=== PATIENT | female | born 1950 | race Caucasian/White ===

== ENCOUNTER → 2017-09-16 | Outpatient (CLI) | payer BC, MEDICARE ==
[~2017-09-16] MED LIST: COUMADIN5 MG PO; DIOVAN/HCTZ; DIOVAN160 MG PO; ESCITALOPRAM OX10 MG PO; LEXAPRO; MYRBETRIQ25 MG PO; PEPCID20 MG PO; PREVACID; TRAMADOL; ULTRAM50 MG PO; VITAMIN D; WARFARIN; WARFARIN SODIUM5 MG PO
--- NOTE | 2017-09-16 14:01 | Diagnostic Imaging Report ---
PROCEDURE:US RETROPERITONEAL ( KIDNEY ). COMPARISON:Abdominal ultrasound 06/23/2017. INDICATIONS:Elevated Creatinine TECHNIQUE: Roman-scale and color sonographic images of the bilateral kidneys and bladder where obtained in transverse and longitudinal planes. FINDINGS: RIGHT KIDNEY: 9.9 cm, cortex 1.9 cm Cysts: 1.3 x 1.0 x 1.2 cm simple cyst in the interpolar region. Solid masses: None. Stones: None. Hydronephrosis: None. Echogenicity: Normal. LEFT KIDNEY: 10.4 cm, cortex 1.4 cm Cysts: 1.8 x 1.0 x 2.0 cm simple cyst in the interpolar region. Solid masses: None. Stones: None. Hydronephrosis: None. Echogenicity: Normal. Bladder: Normal contour. Partially filled. Bilateral ureteral jets are visualized. Incidental note is made of increased echogenicity of the liver. CONCLUSION: No acute sonographic abnormality. Bilateral renal simple cysts. Hepatic steatosis. Dictated by: Masoud Youngblood M.D. on 09/16/2017 at 14:02 Electronically approved by: Masoud Youngblood M.D. on 09/16/2017 at 14:02
== END ==
LOC: US 12:12
PROVIDERS: ATTEND Internal Medicine
DX: R79.89 Other specified abnormal findings of blood chemistry (principal)
CPT/HCPCS: 76770

== ENCOUNTER → 2019-03-22 | Outpatient (CLI) | payer MEDICARE, BC ==
--- NOTE | 2019-03-22 11:27 | Diagnostic Imaging Report ---
Exam: Bone mineral density study. History: 68-year-old female. Comparison: 02/28/2014. Discussion: Evaluation of the hips and lumbar spine was performed utilizing DEXA Hologic bone densitometer. The study is technically adequate. The patient's fracture risk is compared to an age-matched control. Right femoral neck bone mineral density: 0.878 g/cm2, T-score is -0.5, Z-score is 0.8. Decreased 0.2% compared to prior exam. Lumbar spine total bone mineral density: 1.374 gm/cm2, T-score is 3, Z-score is 4.8. Increased 0.9% compared to prior exam Impression: 1. Bone mineralization by WHO Classification of the hips is normal, the fracture risk is not increased. 2. Bone mineralization by WHO Classification of the lumbar spine is normal, the fracture risk is not increased. <T score: NL = -1 or higher Osteopenia = -1 to -2.5 Osteoporosis = -2.5 or lower Z score: < - 1.5 concerning for path> Recommendations: Medical evaluation for secondary causes of low bone mineral density may be appropriate. Correlate clinically for the necessity and timing of the next bone mineral density study. National Osteoporosis Foundation recommendations: Initiate therapy to reduce fracture risk in postmenopausal women with -BMD t-scores below -2 by central DXA with no risk factors -BMD t-scores below -1.5 by central DXA with one or more risk factors (first deg relative with hip fracture, prior personal fracture, low body weight, smoking) -A prior vertebral or hip fracture AACE (Clinical Endocrinology) recommends treating the following: Postmenopausal women who have osteoporosis as diagnosed by fragility fractures or t scores -2.5 or below Postmenopausal women who have risk factors (including fh of hip fracture, low body weight, smoking, risk of falling, high bone turnover, advancing age) and borderline low BMD T scores of -1.5 or below Adequate intake of calcium (at least 1200mg/day) and vitamin D (400-800 IU/day). Regular weight bearing and muscle - strengthening exercises Avoid smoking and excessive alcohol Signed by: Trevon Ortiz on 03/22/2019 11:24 AM
--- NOTE | 2019-03-30 08:45 | Diagnostic Imaging Report ---
#[id number] - MGSCRBIL #BILATERAL DIGITAL SCREENING MAMMOGRAM WITH CAD: 03/22/2019 CLINICAL: Routine screening. Comparison is made to exams dated: 02/28/2014 mammogram and 12/02/2011 mammogram - [facility]. The tissue of both breasts is predominantly fatty. Current study was also evaluated with a Computer Aided Detection (CAD) system. There are benign calcifications in both breasts. No significant masses, calcifications, or other findings are seen in either breast. There has been no significant interval change. IMPRESSION: BENIGN There is no mammographic evidence of malignancy. A 1 year screening mammogram is recommended. The patient will be notified by letter of the results. ANDRE woods/renzo:03/28/2019 10:38:51 [employer] Clerk: Kia BLANDON)([place]), [facility] letter sent: Normal Exam Mammogram BI-RADS: 2 Benign
== END ==
LOC: MAMMO 09:52
PROVIDERS: ATTEND Internal Medicine Hematology & Oncology
DX: Z12.31 Encounter for screening mammogram for malignant neoplasm of breast (principal); N95.8 Other specified menopausal and perimenopausal disorders
CPT/HCPCS: 77067; 77080

== ENCOUNTER → 2021-08-06 | Outpatient (CLI) | payer MEDICARE, BC | LOC: RAD 08:29 | PROVIDERS: ATTEND Internal Medicine | DX: Z12.31 Encounter for screening mammogram for malignant neoplasm of breast (principal); R60.0 Localized edema | CPT/HCPCS: 77067; 93306 ==

== ENCOUNTER → 2021-08-21 | Outpatient (CLI) | payer MEDICARE, BC | LOC: US 12:42 | PROVIDERS: ATTEND Internal Medicine | DX: N18.30 Chronic kidney disease, stage 3 unspecified (principal) | CPT/HCPCS: 76770 ==

== ENCOUNTER 2024-04-07 14:36 | Outpatient (RCR) | payer MEDICARE, BC ==
[~2024-04-07 14:36] MED LIST changes: +LIDOCAINE VISC 2% SOLN 15 ML UDC ONE; +MINERAL OIL/PETROLAT/GLYCERI 6OZ BTL ONE; +MUPIROCIN 2% OINT 22 GM TUBE ONE
== END 2024-04-11 ==
LOC: WCC 14:36
PROVIDERS: ATTEND Internal Medicine Infectious Disease
DX: I87.312 Chronic venous hypertension (idiopathic) with ulcer of left lower extremity (principal); I87.311 Chronic venous hypertension (idiopathic) with ulcer of right lower extremity; L97.821 Non-pressure chronic ulcer of other part of left lower leg limited to breakdown of skin; L97.811 Non-pressure chronic ulcer of other part of right lower leg limited to breakdown of skin; R60.0 Localized edema

== ENCOUNTER 2024-08-08 10:21 | Outpatient (RCR) | payer MEDICARE ==
[~2024-08-08 10:21] MED LIST changes: +COLLAGENASE OINTMENT 30 GM TUBE ONE; +LIDOCAINE/PRILOCAINE 2.5-2.5% KIT ONE; -MUPIROCIN 2% OINT 22 GM TUBE ONE
[2024-08-08] MEDS ORDERED: LIDOCAINE/PRILOCAINE 2.5-2.5% KIT ONE (14:50)
[2024-08-08] MEDS ORDERED: MINERAL OIL/PETROLAT/GLYCERI 6OZ BTL ONE (14:50)
== END 2024-08-12 ==
LOC: WCC 10:21
PROVIDERS: ATTEND Internal Medicine Infectious Disease
DX: I87.312 Chronic venous hypertension (idiopathic) with ulcer of left lower extremity (principal); L97.821 Non-pressure chronic ulcer of other part of left lower leg limited to breakdown of skin; R60.0 Localized edema

== ENCOUNTER 2024-09-08 13:34 | Outpatient (RCR) | payer MEDICARE ==
[~2024-09-08 13:34] MED LIST changes: -COLLAGENASE OINTMENT 30 GM TUBE ONE
== END 2024-09-09 ==
LOC: WCC 13:34
PROVIDERS: ATTEND Internal Medicine Infectious Disease
DX: I87.312 Chronic venous hypertension (idiopathic) with ulcer of left lower extremity (principal); L97.821 Non-pressure chronic ulcer of other part of left lower leg limited to breakdown of skin; R60.0 Localized edema

== ENCOUNTER → 2024-10-10 | Outpatient (RCR) | payer MEDICARE ==
[~2024-10-10] MED LIST changes: +MUPIROCIN 2% OINT 22 GM TUBE ONE
== END ==
LOC: WCC 09-12 10:22
PROVIDERS: ATTEND Internal Medicine Infectious Disease
DX: I87.312 Chronic venous hypertension (idiopathic) with ulcer of left lower extremity (principal); L97.821 Non-pressure chronic ulcer of other part of left lower leg limited to breakdown of skin; R60.0 Localized edema

== ENCOUNTER 2024-11-03 14:30 | Outpatient (RCR) | payer MEDICARE ==
[~2024-11-03 14:30] MED LIST changes: -LIDOCAINE VISC 2% SOLN 15 ML UDC ONE; -MINERAL OIL/PETROLAT/GLYCERI 6OZ BTL ONE; -MUPIROCIN 2% OINT 22 GM TUBE ONE
== END 2024-11-09 ==
LOC: WCC 14:30
PROVIDERS: ATTEND Internal Medicine Infectious Disease
DX: I87.312 Chronic venous hypertension (idiopathic) with ulcer of left lower extremity (principal); L97.821 Non-pressure chronic ulcer of other part of left lower leg limited to breakdown of skin; R60.0 Localized edema

== ENCOUNTER 2025-02-06 11:00 | Outpatient (RCR) | payer MEDICARE ==
[~2025-02-06 11:00] MED LIST changes: -LIDOCAINE/PRILOCAINE 2.5-2.5% KIT ONE
== END 2025-02-09 ==
LOC: WCC 11:00
PROVIDERS: ATTEND Internal Medicine Infectious Disease
DX: I87.312 Chronic venous hypertension (idiopathic) with ulcer of left lower extremity (principal); L97.821 Non-pressure chronic ulcer of other part of left lower leg limited to breakdown of skin; R60.0 Localized edema